=== PATIENT | male | born 1950 | race Caucasian/White ===

== ENCOUNTER 2024-12-16 08:38 | Outpatient (REF) | payer MEDICAID, SELFPAY ==
[2024-12-16 08:54] LABS: Eosinophils Percent Auto 6.3 % (0-4); Imm Gran Abs Auto 0.02 X10*3/uL (0.00-0.03); Red Cell Distribution Width 14.2 % (11.0-16.0)
[2024-12-16 08:56] LABS: Basophils Percent Auto 0.7 % (0-2); Eosinophils Absolute Auto 0.4 X10*3/uL (0.0-0.4); Hematocrit 38.2 % (42.0-52.0); Hemoglobin 12.6 g/dl (14.0-18.0); Imm Gran Pct Auto 0.4 % (0.0-0.4); Lymphocytes Absolute Auto 1.1 X10*3/uL (1.2-4.9); Lymphocytes Percent Auto 18.4 % (20-40); Mean Corpuscular Hemoglobin 30.4 pg (27.0-33.0); Mean Corpuscular Volume 92.3 fL (80.0-98.0); Mean Platelet Volume 13.3 fL (9.4-12.4); Monocytes Absolute Auto 0.6 X10*3/uL (0.1-1.2); Monocytes Percent Auto 10.9 % (2-11); Neutrophils Absolute Auto 3.6 x10*3/uL (2.0-8.3); Neutrophils Percent Auto 63.3 % (45-73); Platelet Count 144 X10*3/uL (160-400); Red Blood Count 4.14 X10*6/uL (4.60-5.80); White Blood Count 5.7 X10*3/uL (4.8-10.8)
[2024-12-16 09:14] LABS: Alanine Aminotransferase 20 U/L (0-40); Albumin Level 3.1 g/dL (3.5-5.0); Alkaline Phosphatase 76 U/L (39-117); Anion Gap 11 (12-20); Aspartate Amino Transferase 25 U/L (5-37); Bilirubin Total 0.7 mg/dL (0.0-1.0); Blood Urea Nitrogen 10 mg/dL (9-16); Calcium 8.6 mg/dL (8.4-10.2); Carbon Dioxide 26 mmol/L (22-29); Chloride 110 mmol/L (96-108); Estimated Glomerular Filt Rate > 60; Glucose Fasting 73 mg/dL (60-99); Potassium 4.1 mmol/L (3.3-5.1); Sodium 143 mmol/L (135-145)
--- OUTSIDE RECORDS SUMMARY | 2024-12-16 09:20 | XMS_ITS ---
Author Organization [facility] Address [address] [place] [address] Care Team Providers Care Box Toe Cementer Name Role Phone TASH BARRIOS Primary Care Provi ju Stiven Low Unavailable [phone] REASON FOR VISIT refill Medications Medication SIG (Take, Route, Fr equency, Duration) Notes Start Date End Date Status Mirtazapine 15 MG 1 tablet at bedtime Orally Once a day for 30 days Active Encounters Encounter Location Date Provider Diagnosis [facility] [address] [address] [facility]/16/[facility] Stiven Prado Plan Of Treatment Medication Medication Name Sig Start Date Stop Date Notes Mirtazapine 15 MG 1 tablet at bedtime Orally Once a day for 30 days Progress Notes * Franklyn ALVAREZDOB:1950 ( 74 yo M)Acc No.[id number]:09/16/2024 Patient:?Franklyn ALVAREZ :1950???Age:74 Y???Sex:Male Address:[address], [place], [address] * Refills? Refill Mirtazapine Tablet, 15 MG, Orally, 30 Tablet, 1 tablet at bedtime, Once a day, 30 days, Refills=3 * true * Date:? Generated for Angelo miles/Jesse/eTransmitting on:?12/16/2024 09:20 AM EST
--- OUTSIDE RECORDS SUMMARY | 2024-12-16 09:21 | XMS_ITS ---
Author Organization [facility] [employer] [facility] Address [address] [place] [address] Care Team Providers Care Back Strip Machine Operator Name Role Phone TASH BARRIOS Primary Care Provi ju Stiven Low Unavailable [phone] REASON FOR VISIT refill Medications Medication SIG (Take, Route, Fr equency, Duration) Notes Start Date End Date Status Mirtazapine 15 MG 1 tablet at bedtime Orally Once a day for 30 days Active Encounters Encounter Location Date Provider Diagnosis [facility] [address] [address] 02/05/2024 Stiven Prado Plan Of Treatment Medication Medication Name Sig Start Date Stop Date Notes Mirtazapine 15 MG 1 tablet at bedtime Orally Once a day for 30 days Progress Notes * Franklyn ALVAREZDOB:1950 ( 73 yo M)Acc No.[id number]:02/05/2024 Patient:?Franklyn ALVAREZ :1950???Age:73 Y???Sex:Male Address:[address], [place], [address] * Refills? Refill Mirtazapine Tablet, 15 MG, Orally, 30 Tablet, 1 tablet at bedtime, Once a day, 30 days, Refills=3 * true * Date:? Generated for Angelo miles/Jesse/eTransmitting on:?12/16/2024 09:20 AM EST
--- OUTSIDE RECORDS SUMMARY | 2024-12-16 09:21 | XMS_ITS | Patient Health Record ---
Author Organization [facility] [employer] Address [address] [address] Care Team Providers Care Pipe Cleaner Name Role Phone TASH BARRIOS Primary Care Provi ju Stiven Low Unavailable [phone] Allergies Allergen (clinical drug ingredient) Drug/Non Drug Allergy documented on EMR Reaction Allergy Type Onset Date Status Substance with penicillin structure and antibacterial mechanism of action (substance) Penicillins Unknown Drug Allergy Active Reason For Referral No Information Medications Medication SIG (Take, Route, Frequency, Duration) Notes Start Date End Date Status Sulfamethoxazole-Trimethopr im 800-160 MG TAKE 1 TABLET BY MOUTH TWICE DAILY FOR 7 DAYS Oral for 7 Active Mirtazapine 15 MG TAKE 1 TABLET BY CLEMENTINA TH DAILY AT BEDTIME Active Social History Tobacco Use: Social History Observation Description Date Details (start date - stop date) Former Smoker NA - NA Tobacco Use/Smoking Question Answer Notes Are you a former smoker Problems Problem Type SNOMED Code ICD Code Onset Dates Problem Status W/U Status Risk Notes Problem Encephalopathy (67914126) Encephalopathy, unspecified (G93.40) Active confirmed Problem Anxiety (03113222) Anxiety (F41.9) Active confirmed Problem Dementia (45025218) Dementia (F03.90) Active confirmed Problem COPD - Chronic obstructive pulmonary disease (69962386) COPD (chronic obstructive pulmonary disease) (J44.9) Active confirmed Problem Diverticulitis (65350033) Diverticulitis (K57.92) Active confirmed Problem Essential hypertension (39675720) Essential hypertension (I10) Active confirmed Problem mood swings (finding) (99720504) Mood changes (F39) Active confirmed Problem Family history: Alzheimer disease (014501163) Family history of Alzheimer's disease (Z82.0) Active confirmed Problem 535132274 Acute memory impairment (R41.3) Active confirmed Encounters Encounter Location Date Provider Diagnosis [address] [address] 02/05/[address] [address] 09/16/2024 Stiven Clifton Plan Of Treatment No Information Insurance Providers Payer Name Payer Address Payer Phone Subscriber Number Group Number Insured Name Patient Relationship to Insured Coverage Start Date Coverage End Date AARP Medicare PPO [address] [address] [place], [place] [id number] Franklyn Miranda Self - patient is the insured MEDICARE [address] NICHELLEPAU Mahoney [phone] [id number] Franklyn Miranda Self - patient is the insured Medical (General) History Surgical History Surgery Date(Month/Year) Full Knee replacement Right knee Hospitalization History Reason Date(Month/Year) Surgery 07/01/2022
[2024-12-16 09:31] LABS: Thyroid Stimulating Hormone 4.56 uIU/mL (0.32-4.0); Vitamin D 25-OH Total 24.3 ng/mL (>30)
[2024-12-19 16:47] LABS: TS Negative Control Passed; TS Panel A 0; TS Panel B 0; TS Positive Control Passed; TSpotTB Negative (Negative)
== END 2024-12-16 08:39 | disposition home or self-care (01) ==
LOC: HO.HSH3N 08:38
PROVIDERS: Visit Provider Internal Medicine Interventional Cardiology
DX: I10 Essential (primary) hypertension (principal); F03.90 Unspecified dementia, unspecified severity, without behavioral disturbance, psychotic disturbance, mood disturbance, and anxiety
CPT/HCPCS: 36415; 80053; 82306; 84443; 85025; 86481

== ENCOUNTER 2024-12-30 08:33 | Outpatient (REF) | payer MEDICAID, SELFPAY ==
[2024-12-30 10:00] LABS: Free T4 (Free Thyroxine) 0.97 ng/dL (0.71-1.85)
== END 2024-12-30 08:34 | disposition home or self-care (01) ==
LOC: HO.HSH1N 08:33
PROVIDERS: Visit Provider Internal Medicine Interventional Cardiology
DX: R94.6 Abnormal results of thyroid function studies (principal)
CPT/HCPCS: 36415; 84439

== ENCOUNTER 2025-05-24 06:58 | Outpatient (REF) | payer MEDICAID, SELFPAY ==
--- OUTSIDE RECORDS SUMMARY | 2025-05-24 07:00 | XMS_ITS | Referral Summary ---
Author Organization [facility] Address [address] [place] [address] Care Team Providers Care Truck Trailer Mechanic Name Role Phone Jess Rider MD Primary Care Provider [phone] Allergies Active Allergy Reactions Criticality Noted Date Comments Penicillin G Malignant Hyperthermia High 08/19/2017 Received as child and temp tita to 106 F Medications MULTIVIT-MINERA LS/FOLIC ACID (CENTRUM VITAMINTS ORAL) Take 1 tablet by mouth daily before lunch. Active diclofenac (VOLTAREN) 1% gel Apply topically to the affected area 4 times a day. Active acetaminophen (TYLENOL) 325 mg tablet Take 650 mg by mouth every 6 hours as needed for pain. Active mirtazapine (REMERON) 15 mg tablet Take 15 mg by mouth nightly. Active memantine (NAMENDA) 5 mg tablet Take 5 mg by mouth 2 times a day. Active omeprazole (PriLOSEC) 20 mg capsule Take 1 capsule (20 mg total) by mouth once a day. 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 S/P total knee arthroplasty, right 08/20/2022 Mata's esophagus with low grade dysplasia Hiatal hernia with gastroesophageal reflux 08/08 Osteoarthritis of right knee , unspecified osteoarthritis type 07/02/2022 Primary localized osteoarthritis of right knee 0 07/01/2022 Immunizations Immunization Administration Dates Next Due Influenza, Injectable, Quadr ivalent, Preservative Free 07/04/2022(Deferred: Patient Refused) Social History Tobacco Use Types Packs/Day Years Used Date Smoking Tobacco: Former Cigarettes 1 15 0 07/01/2007 - 07/01/2022 E-Cigarettes Vapor Passive Smoke Exposure: Never Smokeless Tobacco: Never Tobacco Cessation:Counseling Given: No Alcohol Use Standard Drinks/Week Comments Not Currently 0 (1 standard drink = 0.6 oz pur e alcohol) Hunger Vital Sign Answer Date Recorded Within the past 12 months, y ou worried that your food would run out before you got the money to buy more. Never true 01/11/20 25 Within the past 12 months, t he food you bought just didn't last and you didn't have money to get more. Never true 01/10/2025 Sex and Gender Information Value Date Recorded Sex Assigned at Male 01/10/2025 11:49 AM EDT Legal Sex Male 5:19 AM EDT Gender Identity Not on file Sexual Orientation Not on file Last Filed Vital Signs Vital Sign Reading Time Taken Comments Blood Pressure 146/73 01/10/2025 1:15 PM EDT Pulse 57 01/10/2025 1:15 PM EDT Temperature 36.4 C (97.5 F) 01/10/2025 1:00 PM EDT Respiratory Rate 17 01/10/2025 1:15 PM EDT Oxygen Saturation 94% 01/10/2025 1:15 PM EDT Inhaled Oxygen Concentration - - Weight 111.1 kg (245 lb) 01/10/2025 12:13 PM EDT Height 188 cm (6' 2 ) 01/10/2025 12:13 PM EDT Body Mass Index 31.46 01/10/2025 12:13 PM EDT Plan of Treatment Not on file Medical Devices Implanted Type Area Manufacturing Intern Device Identifier Shelf Expiration Date Model / Serial / Lot Patella Asymmetric Tritanium Size [id number] - [id number] Implanted:Qty: 1 on 07/01/2022 by Joey Galicia J.P., MD at [facility] Implant Right: Knee CHRISTINE 12/14/2026 5552-L-381 / / [id number] Component Femoral Cruciate Retaining Beaded Right Size 8 Triathlon - [id number] Implanted:Qty: 1 on 07/01/2022 by Joey Galicia J.P., MD at [facility] Implant Right: Knee CHRISTINE 07/20/2026 5517-F-802 / / [id number] Baseplate Tritanium Size 8 Triathlon - [id number] Implanted:Qty: 1 on 07/01/2022 by Joey Galicia J.P., MD at [facility] Plate Right: Knee CHRISTINE 07/29/2023 5536-B-800 / / [id number] Tibial Bearing Insert -Cs Implanted:Qty: 1 on 07/01/2022 by Joey Galicia J.P., MD at [facility] Right: Knee [facility] 07/04/2024 5531-G-809 -[id number] / / [id number] Procedures * Due to [place] [employer] law, this organization might not be sharing negative HIV tests. Procedure Name Priority Date/Time Associated Diagnosis Comments UPPER GI ENDOSCOPY 01/10/2025 from Last 3 Months or Most Recently Relevant to Health Maintenance Results * Due to [place] [employer] law, this organization might not be sharing negative HIV tests. * UPPER GI ENDOSCOPY (01/10/2025) Narrative Procedure Note Nahum Rodriguez MD - 01/10/2025 12:17 PM EDT [facility] Gastroenterology Patient Name: Franklyn Miranda Procedure Date: 01/10/2025 12:17 PM Date of : 1950 Admit Type: Outpatient Age: 74 Room: [place] [address] Gender: Male Note Status: Finalized Attending MD: Nahum Rodriguez MD Procedure: Upper GI endoscopy Indications: Mata's low grade dysplasia, Surveillance after eradication of Mata's esophagus Providers: Nahum Rodriguez MD Referring MD: Jess Rider (Referring MD) Requesting Provider: Medicines: Propofol total dose 250 mg IV Complications: No immediate complications. Procedure: After obtaining informed consent, the endoscope was passed under direct vision. Throughout theprocedure, the patient's blood pressure, pulse, and oxygen saturations were monitored continuously. The Endosonoscope was introduced through the mouth, and advanced to the second part of duodenum. The upperGI endoscopy was accomplished without difficulty. The patient tolerated the procedure well. Findings: The Z-line was irregular and was found 38 cm from the incisors.Biopsies were taken with a cold forceps for histology. Estimated blood losswas minimal. No evidence of Mata's on endoscopy. A 2 cm hiatal hernia was present. A single 5 mm sessile polyp with no bleeding was found in theduodenal bulb. The polyp was removed with a cold biopsy forceps. Resection and retrieval were complete. Estimated blood loss was minimal. Multiple small mucosal nodules (likely Radhika's gland hyperplasia)were found in the duodenal bulb. The second portion of the duodenum was normal. Impression: - Z-line irregular, 38 cm from the incisors.Biopsied. - No evidence of Mata's on endoscopy. - 2 cm hiatal hernia. - A single duodenal polyp. Resected andretrieved. 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 - Normal second portion of the duodenum. Recommendation: - Patient has a contact number available for emergencies. The signs and symptoms of potential delayed complications were discussed with thepatient. Return to normal activities tomorrow. Written discharge instructions were provided to thepatient. - Follow an antireflux regimen. - Continue present medications. - Await pathology results. Nahum Rodriguez MD 01/10/2025 12:59:56 PM This report has been signed electronically. Number of Addenda: 0 Note Initiated On: 01/10/2025 12:17 PM Nahum Rodriguez MD PROVATION PROCEDURES Final Result from Last 3 Months or Most Recently Relevant to Health Maintenance Insurance [facility] [address] [facility] [address] [facility] [address] [address] Advance Directives Documents on File Type Date Recorded Patient Mold Laminator Expl anatekl Health Care Proxy 07/01/2022 6:41 AM Health Care Proxy 12/04/2017 10:55 AM Heal th Care Proxy Advance Directive 04/27/2017 12:00 AM Adva nce Care Directives Advance Directive 04/21/2017 12:00 AM Adva nce Directive / Health Care Proxy * Presumed Full Code (Latest Code Status on File) Date Activated Date Inactivated Comments 01/10/2025 12:34 PM 01/10/2025 3:38 PM * Presumed Full Code Date Activated Date Inactivated Comments 07/15/2023 9:47 AM 07/15/2023 2:00 PM * Presumed Full Code Date Activated Date Inactivated Comments 08/08/2022 12:06 PM 08/08/2022 5:36 PM * Full Code Date Activated Date Inactivated Comments 07/01/2022 11:07 AM 07/04/2022 4:26 PM * Full Code Date Activated Date Inactivated Comments 01/14/2019 3:06 PM 01/14/2019 7:12 PM Care Teams Truck Trailer Mechanic Relationship Specialty Start Date End Date Jess Rider MD [address] [place] [phone] PCP - General 07/15/23
--- OUTSIDE RECORDS SUMMARY | 2025-05-24 07:01 | XMS_ITS | Patient Health Record ---
Author Organization [facility] Address [address] [place] [address] Care Team Providers Care Slagger Name Role Phone Canelo Kevin Primary Care Provider TerenceMario Alberto Burgess Unavailable [phone] Reason For Referral No Information Medications Medication SIG (Take, Route, Frequency, Duration) Notes Start Date End Date Status GoLYTELY - powder for reconstitution 240 mL orally every 15 minutes; Duration: 16 dose(s) 04/03/2016 Active Social History Social History Additional Details Category Social Info Options Details Social History Alcohol: No Drug use: No Exercise: Yes Checked Cholesterol levels No Seat belt usage Yes Gun in house No Problems Problem Type SNOMED Code ICD Code Onset Dates Problem Status W/U Status Risk Notes Problem Screening for malignant neoplasm of colon (703789084) Encounter for screening for malignant neoplasm of colon (Z12.11) Active confirmed Plan Of Treatment No Information Insurance Providers Payer Name Payer Address Payer Phone Subscriber Number Group Number Insured Name Patient Relationship to Insured Coverage Start Date Coverage End Date Medicare B [place] National [facility] [address] [place] [address] [id number] SUZIE ALVAREZ Self - patient is the insured AARP SUPPLEMENT [facility] Claims Division [address] [place] [address] [id number] SUZIE ALVAREZ Self - patient is the insured
--- OUTSIDE RECORDS SUMMARY | 2025-05-24 07:01 | XMS_ITS | Patient Health Record ---
Author Organization [facility] [employer] Address [address] [address] Care Team Providers Care Logistics/Shipper Name Role Phone TASH BARRIOS Primary Care Provi ju Stiven Low Unavailable [phone] Allergies Allergen (clinical drug ingredient) Drug/Non Drug [...] BY MOUTH TWICE DAILY FOR 7 DAYS Oral; Duration: 7 Active Mirtazapine 15 MG TAKE 1 TABLET BY CLEMENTINA TH DAILY AT BEDTIME Active Social History Tobacco Use: Social History Observation Description Date Details (start date - stop date) Former Smoker NA - NA Tobacco Use/Smoking Question Answer Notes Are you a former smoker Problems Problem Type SNOMED Code ICD Code Onset Dates Problem Status W/U Status Risk Notes Problem Encephalopathy (50302709) Encephalopathy, unspecified (G93.40) Active confirmed Problem Anxiety (23773031) Anxiety (F41.9) Active confirmed Problem Dementia (27752594) Dementia (F03.90) Active confirmed Problem COPD - Chronic obstructive pulmonary disease (56084872) COPD (chronic obstructive pulmonary disease) (J44.9) Active confirmed Problem Diverticulitis (84640382) Diverticulitis (K57.92) Active confirmed Problem Essential hypertension (43338038) Essential hypertension (I10) Active confirmed Problem mood swings (finding) (89825188) Mood changes (F39) Active confirmed Problem Family history: Alzheimer disease (845944365) Family history of Alzheimer's disease (Z82.0) Active confirmed Problem Amnesia (83077684) Acute memory impairment (R41.3) Active confirmed Encounters Encounter Location Date Provider Diagnosis [address] [address] 09/16/2024 Stiven Prado Plan Of Treatment No Information Insurance Providers Payer Name Payer Address Payer Phone Subscriber Number Group Number Insured Name Patient Relationship to Insured Coverage Start Date Coverage End Date AARP Medicare PPO/POS [address] [address] [place], [place] [id number] Franklyn Miranda Self - patient is the insured MEDICARE [address] [place] [id number] Franklyn Miranda Self - patient is the insured Medical (General) History Surgical History Surgery Date(Month/Year) Full Knee replacement Right knee Hospitalization History Reason Date(Month/Year) Surgery 07/01/2022
[2025-05-24 07:15] LABS: INTERNATIONAL NORM RATIO 1.0 (0.9-1.1); Prothrombin Time 11.8 SEC (10.9-12.4)
[2025-05-24 07:18] LABS: Partial Thromboplastin Time 29.6 SEC (26.7-34.1)
== END 2025-05-24 06:59 | disposition home or self-care (01) ==
LOC: HO.HSH1N 06:58
PROVIDERS: Visit Provider Internal Medicine Interventional Cardiology
DX: I48.91 Unspecified atrial fibrillation (principal)
CPT/HCPCS: 36415; 85610; 85730

== ENCOUNTER 2025-09-12 20:49 | Outpatient (REF) | payer MEDICARE, OTHER, SELFPAY ==
--- OUTSIDE RECORDS SUMMARY | 2025-09-12 20:53 | XMS_ITS | Clinical Summary ---
Author Organization [facility] Address [address] [place] [address] Care Team Providers Care Die Tripper Name Role Phone Jess Rider MD Primary Care Provider [phone] Allergies Active Allergy Reactions Criticality Noted Date [...] Quadr ivalent, Preservative Free 07/04/2022(Deferred: Patient Refused) Family History Medical History Relation Name Comments Drug abuse Brother Suicidality Brother Cirrhosis Mother Cancer Sister Relation Name Status Comments Brother Alive had lung remove d--? reason Father Pt not sure of parents reason of Mother reson of unknown by pt Sister Social History Tobacco Use Types Packs/Day Years [...] 01/10/2025 12:13 PM EDT Plan of Treatment Health Maintenance Due Date Last Done Comments Cologuard 1950 FOBT / Fit Test 1950 Sigmoidoscopy 1950 Zoster Vaccines (1 of 2) 2000 DTaP,Tdap,and Td Vaccines (2 - Td or Tdap) 05/31/2020 05/31/2010, 05/31/2010 Alcohol/Substance Use Screening 10/13/2024 Health Care Proxy Review 10/13/2024 Influenza Vaccine (#1) 2025 , 08/01/2013, 11/24/2012, Additional history exists COVID-19 Vaccine (2 - 2024- season) 2025 04/22/2022 RSV Vaccine (60+ years old and patients) (1 - 1-dose 75+ series) 2025 Gastroscopy (EGD) 01/10/2026 01/10/2025, , 07/15/2023, Additional history exists Colon Cancer Screening 04/22/2027 Colonoscopy 04/22/2027 04/22/2017, 04/19/2017 Pneumococcal Vaccine: 50+ Years Completed 07/26/2022 Abdominal Aortic Aneurysm (AAA) Screening Completed 08/30/2022, 08/30/2022 Hepatitis B Vaccines Aged Out No long er eligible based on patient's age to complete this topic Medical Devices Implanted Type Area Breast Puller Device Identifier Shelf Expiration Date Model / Serial / Lot Patella Asymmetric Tritanium Size [id number] - [id number] Implanted:Qty: 1 on 07/01/2022 by Joey Galicia J.P., MD at [facility] Implant Right: Knee CHRISTINE 12/14/2026 5552-L-381 / / [id number] Component Femoral Cruciate Retaining Beaded Right Size 8 Triathlon - [id number] Implanted:Qty: 1 on 07/01/2022 by Joey Galicia J.P., MD at [facility] Implant Right: Knee CHRISTINE 07/20/2026 5517-F-802 / / [id number] Baseplate Tritanium Size 8 Triathlon - [id number] Implanted:Qty: 1 on 07/01/2022 by Joey Galicia J.P., MD at [facility] Plate Right: Knee CHRISTINE 07/29/2023 5536-B-800 / / [id number] Tibial Bearing Insert -Cs Implanted:Qty: 1 on 07/01/2022 by Joey Galicia J.P., MD at [facility] Right: Knee [facility] 07/04/2024 5531-G-809 -E / / [id number] Procedures * Due to [place] [employer] law, this organization might not be sharing negative HIV tests. Procedure Name Priority Date/Time Associated Diagnosis Comments UPPER GI ENDOSCOPY 01/10/2025 COLONOSCOPY 04/22/2017 2:53 PM EDT from Last 3 Months or Most Recently Relevant to Health Maintenance Results * Due to [place] [employer] law, this organization might not be sharing negative HIV tests. * UPPER GI ENDOSCOPY (01/10/2025) Narrative Procedure Note Nahum Rodriguez MD - 01/10/2025 12:17 PM EDT [facility] Gastroenterology Patient Name: Franklyn Miranda Procedure Date: 01/10/2025 12:17 PM Date of : 1950 Admit Type: Outpatient Age: 74 Room: [place] [address] Gender: Male Note Status: Finalized Attending MD: [...] 0 Note Initiated On: 01/10/2025 12:17 PM us Nahum Rodriguez MD PROVATION PROCEDURES Final Result * COLONOSCOPY (04/22/2017 2:53 PM EDT) Narrative Procedure Note Li Bowden MD - 04/22/2017 2:53 PM EDT Patient Name: Franklyn Miranda Procedure Date: 04/22/2017 2:53 PM Date of : 1950 Admit Type: Inpatient Age: 66 Room: ICU Gender: Male Note Status: Finalized Attending MD: Li Bowden MD Procedure: Colonoscopy Indications: Hematochezia, Rectal bleeding Comorbidities Providers: Li Bowden MD, Forest Juárez MD (Fellow) Referring MD: Pacheco Roque (Referring MD) Requesting Provider: Medicines: Fentanyl 75 micrograms IV, Midazolam 3 mg IV Complications: No immediate complications. Estimated Blood Loss: Estimated blood loss: none. Procedure: After I obtained informed consent, the scope was passed under direct vision. Throughout the procedure, the patient's blood pressure, pulse, and oxygen saturations were monitored continuously. The Colonoscope was introduced through the anus and advanced to theterminal ileum. The colonoscopy was performed withoutdifficulty. The patient tolerated the procedure. The bowelpreparation used was Tap water enemas. Findings: Multiple small-mouthed diverticula were found in the sigmoid colon,in the proximal sigmoid colon, in the mid sigmoid colon, in thedescending colon and at the splenic flexure. The terminal ileum appeared normal. Blood throughout all portions of examined colon. Internal Hemorrhoids noted on retroflexion Impression: - Diverticulosis in the sigmoid colon, in the proximal sigmoid colon, in the mid sigmoid colon, in thedescending colon and at the splenic flexure. - The examined portion of the ileum was normal. - No specimens collected. Recommendation: - Return patient to ICU for ongoing care. - Clear liquid diet today. - If patient re-bleeds, would recommend consultationwith surgery for possible ángel-colectomy; diverticuli visualized beginning at the splenic flexure anddistally, primarily into the sigmoid. Attending Participation: I was present and participated during the entire procedure, including non-amador portions. Li Bowden MD 04/22/2017 7:34:40 PM This report has been signed electronically. Number of Addenda: 0 Note Initiated On: 04/22/2017 2:53 PM Li Bowden MD PROVATION PROCEDURES Fi nal Result from Last 3 Months or Most Recently Relevant to Health Maintenance Insurance [facility] [address] [address] [address] [address] [facility] MCR REPLACE AARP [facility] [address] [address] Advance Directives Documents on File Type Date Recorded Patient Keeper Head Expl anation Health Care Proxy 07/01/2022 6:41 AM Health [...] 3:06 PM 01/14/2019 7:12 PM Care Teams Die Tripper Relationship Specialty Start Date End Date Jess Rider MD [address] [place] [phone] [facility] - General 07/15/23
--- OUTSIDE RECORDS SUMMARY | 2025-09-12 20:53 | XMS_ITS | Clinical Summary ---
Author Organization [employer] Address [address] [facility] [address] [place] [address] Care Team Providers Care Sheet Taker Name Role Phone Unavailable Primary Care Provider Unavailabl e Allergies Active Allergy Reactions Criticality Noted Date Comments Penicillin G High 08/19/2017 Other Reaction(s): Malignant Hyperthermia Received as child and temp tita to 106 F Medications acetaminophen (Tylenol) 325 MG tablet Take 650 mg by mouth every 6 (six) hours if needed. Active Diclofenac Sodium 1 % gel Apply topically 4 times daily. Active donepezil (Aricept) 10 MG tablet 5 Active donepezil (Aricept) 5 MG tablet 5 Active lactulose (Chronulac) 10 GM/15ML solution 5 Active memantine (Namenda) 5 MG tablet Take 5 mg by mouth 2 times daily. Active memantine (Namenda) 10 MG tablet 5 Active mirtazapine (Remeron) 15 MG tablet Take 15 mg by mouth at bedtime. Active Paxlovid, 300/100, 20 x 150 MG & 10 x 100MG tablet therapy pack TAKE 3 TABLETS BY MOUTH TWICE DAILY DIRECTED FOR 5 DAYS 5 Active omeprazole (PriLOSEC) [address] capsule Take 20 mg by mouth Once per day. 5 01/11/20 26 Active lactulose (Chronulac) 10 GM/15ML solution Take 20 g by mouth 3 times daily. Active omeprazole OTC (PriLOSEC OTC) 20 MG EC tablet Take 20 mg by mouth before breakfast. Do not crush, chew, or split. 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 S/P total knee arthroplasty, right 08/20/2022 Mata's esophagus with low grade dysplasia Hiatal hernia with gastroesophageal reflux 08/08 Osteoarthritis of right knee 07/01/2022 Social History Tobacco Use Types Packs/Day Years Used Date Smoking Tobacco: Never Smokeless Tobacco: Never Tobacco Cessation:Counseling Given: Not Answered Sex and Gender Information Value Date Recorded Sex Assigned at Male 02/07/2025 3:30 PM EDT Legal Sex Male 3:29 PM EDT Gender Identity Male 02/07/2025 3:30 PM EDT Sexual Orientation Straight 02/07/2025 3: 30 PM EDT Plan of Treatment Health Maintenance Due Date Last Done Comments CT Colonography 1950 Colonoscopy 1950 Colorectal Cancer Screening 1950 Dental Prophylaxis 1950 Dental X-Ray: Bitewings 1950 Dental X-Ray: Full Mouth 1950 Depression Screening 1950 FIT DNA/Cologuard 1950 FIT 1950 FOBT 1950 Lipid Panel 1950 SDOH Screening 1950 Sigmoidoscopy 1950 Alcohol/Substance Use Screening 1962 Hepatitis C Screening 1968 DTaP/Tdap/Td Vaccines (1 - Tdap) 1969 Pneumococcal Vaccine: 50+ Ye ars (1 of 1 - PCV) 2000 Zoster Vaccines (1 of 2) 2000 COVID-19 Vaccine (1 - 2024-2 6 season) 2025 Influenza Vaccine (#1) 2025 RSV Patients and Pa tients Aged 60 years or older (1 - 1-dose 75+ series) 2025 Dental Oral Exam 09/16/2025 03/16/2025 Tobacco Screening 03/16/2026 03/16/2025 HIB Vaccines Aged Out No longer eligi ble based on patient's age to complete this topic HPV Vaccines Aged Out No longer eligi ble based on patient's age to complete this topic Hepatitis A Vaccines Aged Out No long er eligible based on patient's age to complete this topic Hepatitis B Vaccines Aged Out No long er eligible based on patient's age to complete this topic IPV Vaccines Aged Out No longer eligi ble based on patient's age to complete this topic Meningococcal B Vaccine Aged Out No l onger eligible based on patient's age to complete this topic Meningococcal Vaccine Aged Out No charla raymond eligible based on patient's age to complete this topic RSV under 20 months Aged Out No longe r eligible based on patient's age to complete this topic Rotavirus Vaccines Aged Out No longer eligible based on patient's age to complete this topic Procedures Procedure Name Priority Date/Time Associated Diagnosis Comments PERIODIC ORAL EVALUATION - ESTABLISHED PATIENT Routine 03/16/2025 9:15 AM EDT from Last 3 Months or Most Recently Relevant to Health Maintenance Insurance DENTAL - HSN FULL (MEDICAID)
[2025-09-12 21:39] LABS: Resp Syncy Virus RNA Qual PCR NEGATIVE (Negative); SARS COV2 PCR INHOUSE NEGATIVE (Negative)
== END 2025-09-12 20:50 | disposition home or self-care (01) ==
LOC: HO.HSH 20:49
PROVIDERS: Visit Provider Internal Medicine Interventional Cardiology
DX: R05.9 Cough, unspecified (principal); R09.89 Other specified symptoms and signs involving the circulatory and respiratory systems
CPT/HCPCS: 87637

== ENCOUNTER 2025-09-19 06:22 | Outpatient (REF) | payer MEDICARE, OTHER, SELFPAY ==
[2025-09-19 06:24] LABS: MANUAL DIFF FLAG NO
--- OUTSIDE RECORDS SUMMARY | 2025-09-19 06:25 | XMS_ITS | Patient Health Record ---
Author Organization [facility] Address [address] [place] [address] Care Team Providers Care Farmer And Grazier Name Role Phone Canelo Kevin Primary Care Provider Lance Mario Alberto Aguillon Unavailable [phone] Reason For Referral No Information Medications Medication [...] Problem Screening for malignant neoplasm of colon (754880819) Encounter for screening for malignant neoplasm of colon (Z12.11) Active confirmed Plan Of Treatment No Information Insurance Providers Payer Name Payer Address Payer Phone Subscriber Number Group Number Insured Name Patient Relationship to Insured Coverage Start Date Coverage End Date Medicare B [place] National [employer] [address] [place] [address] [id number] SUZIE ALVAREZ Self - patient is the insured AARP SUPPLEMENT [facility] Claims Division [address] [place] [address] [id number] SUZIE ALVAREZ Self - patient is the insured
--- OUTSIDE RECORDS SUMMARY | 2025-09-19 06:25 | XMS_ITS | Patient Health Record ---
Author Organization [facility] Address [address] [address] Care Team Providers Care German Instructor Name Role Phone TASH BARRIOS Primary Care Provi ju Stiven Low Unavailable [phone] Allergies Allergen (clinical drug ingredient) Drug/Non Drug [...] Status W/U Status Risk Notes Problem Encephalopathy (05458299) Encephalopathy, unspecified (G93.40) Active confirmed Problem Anxiety (57584875) Anxiety (F41.9) Active confirmed Problem Dementia (55378482) Dementia (F03.90) Active confirmed Problem COPD - Chronic obstructive pulmonary disease (71128339) COPD (chronic obstructive pulmonary disease) (J44.9) Active confirmed Problem Diverticulitis (37513963) Diverticulitis (K57.92) Active confirmed Problem Essential hypertension (44755143) Essential hypertension (I10) Active confirmed Problem mood swings (finding) (77518776) Mood changes (F39) Active confirmed Problem Family history: Alzheimer disease (839477702) Family history of Alzheimer's disease (Z82.0) Active confirmed Problem Amnesia (05350757) Acute memory impairment (R41.3) Active confirmed Plan Of Treatment No Information Insurance Providers Payer Name Payer Address Payer Phone Subscriber Number Group Number Insured Name Patient Relationship to Insured Coverage Start Date Coverage End Date AARP Medicare PPO/POS [address] [address] [place], [place] [id number] Franklyn Miranda Self - patient is the insured MEDICARE [address] [employer]U DIGGS [id number] Franklyn Miranda Self - patient is the insured Medical (General) History Surgical History Surgery Date(Month/Year) Full Knee replacement Right knee Hospitalization History Reason Date(Month/Year) Surgery 07/01/2022
--- OUTSIDE RECORDS SUMMARY | 2025-09-19 06:25 | XMS_ITS | Clinical Summary ---
Author Organization [facility] Address [address] [place] [address] Care Team Providers Care Asphalt Heater Operator Name Role Phone Jess Rider MD Primary Care Provider [phone] Allergies Active Allergy Reactions Criticality Noted Date [...] this topic Medical Devices Implanted Type Area Physics Professor Device Identifier Shelf Expiration Date Model / Serial / Lot Patella Asymmetric Tritanium Size [id number] - [id number] Implanted:Qty: 1 on 07/01/2022 by Joey Galicia J.P., MD at [facility] Implant Right: Knee CHRISTINE 12/14/2026 5552-[id number] / / [id number] Component Femoral Cruciate Retaining Beaded Right Size 8 Triathlon - [id number] Implanted:Qty: 1 on 07/01/2022 by Joey Galicia J.P., MD at [facility] Implant Right: Knee CHRISTINE 07/20/2026 [id number] / / [id number] Baseplate Tritanium Size 8 Triathlon - [id number] Implanted:Qty: 1 on 07/01/2022 by Joey Galicia J.P., MD at [facility] Plate Right: Knee CHRISTINE 07/29/2023 5536-[id number] / / [id number] Tibial Bearing Insert -Cs Implanted:Qty: 1 on 07/01/2022 by Joey Galicia J.P., MD at [facility] Right: Knee [facility] [employer] 07/04/2024 [id number]-[id number] / / [id number] Procedures * Due to [place] [employer] law, this organization might not be sharing negative HIV tests. Procedure Name Priority Date/Time Associated Diagnosis Comments UPPER GI ENDOSCOPY 01/10/2025 COLONOSCOPY 04/22/2017 2:53 PM EDT from Last 3 Months or Most Recently Relevant to Health Maintenance Results * Due to [place] [employer] law, this organization might not be sharing negative HIV tests. * UPPER GI ENDOSCOPY (01/10/2025) Narrative Procedure Note Nahum Rodriguez MD - 01/10/2025 12:17 PM EDT [facility] Patient Name: Franklyn Miranda Procedure Date: 01/10/2025 12:17 PM Date of : 1950 Admit Type: Outpatient Age: 74 Room: [place] [address] Gender: Male Note Status: Finalized Attending MD: [...] Recently Relevant to Health Maintenance Insurance [facility] [address] [id number] MCR REPLACE [facility]ARP [facility] [address] [address] [facility] MCR REPLACE AARP [facility] [address] [address] Advance Directives Documents on File Type Date Recorded Patient Shopper'S Aide Expl anation Health Care Proxy 07/01/2022 6:41 [...] 3:06 PM 01/14/2019 7:12 PM Care Teams Asphalt Heater Operator Relationship Specialty Start Date End Date Jess Rider MD [address] [place] [phone] [facility] - General 07/15/23
--- OUTSIDE RECORDS SUMMARY | 2025-09-19 06:25 | XMS_ITS | Clinical Summary ---
Author Organization [employer] Address [address] [facility] 7[address] [place] [address] Care Team Providers Care Loans Officer Name Role Phone Unavailable Primary Care Provider [...]
[2025-09-19 06:56] LABS: Hematocrit 42.8 % (42.0-52.0); Hemoglobin 14.3 g/dl (14.0-18.0); Imm Gran Abs Auto 0.05 X10*3/uL (0.00-0.03); Imm Gran Pct Auto 0.6 % (0.0-0.4); Lymphocytes Absolute Auto 1.7 X10*3/uL (1.2-4.9); Mean Corpuscular HGB Conc 33.4 g/dl (31.0-36.0); Mean Corpuscular Hemoglobin 30.4 pg (27.0-33.0); Mean Corpuscular Volume 91.1 fL (80.0-98.0); NRBC Abs Auto 0.000 X10*3/uL (0.0-0.012); NRBC Pct Auto 0.0 /100WBC (0.0-0.2); Platelet Count 148 X10*3/uL (160-400); Red Blood Count 4.70 X10*6/uL (4.60-5.80); White Blood Count 7.8 X10*3/uL (4.8-10.8)
[2025-09-19 07:11] LABS: Alanine Aminotransferase 32 U/L (0-40); Albumin Level 3.4 g/dL (3.5-5.0); Alkaline Phosphatase 75 U/L (39-117); Anion Gap 11 (12-20); Aspartate Amino Transferase 33 U/L (5-37); Blood Urea Nitrogen 20 mg/dL (9-16); Calcium 8.5 mg/dL (8.4-10.2); Carbon Dioxide 25 mmol/L (22-29); Chloride 113 mmol/L (96-108); Estimated Glomerular Filt Rate > 60; Potassium 3.7 mmol/L (3.3-5.1); Sodium 145 mmol/L (135-145); Total Protein 5.9 g/dL (6.5-8.0)
[2025-09-19 07:26] LABS: Thyroid Stimulating Hormone 3.26 uIU/mL (0.32-4.0)
== END 2025-09-19 06:23 | disposition home or self-care (01) ==
LOC: HO.HSH1N 06:22
PROVIDERS: Visit Provider Internal Medicine Interventional Cardiology
DX: R41.82 Altered mental status, unspecified (principal)
CPT/HCPCS: 36415; 80053; 84443; 85025